=== PATIENT | female | born 1965 | race Caucasian/White ===

== ENCOUNTER 2017-11-07 18:55 | Emergency (ER) | payer OTHER ==
[~2017-11-07] VITALS: Ht 172.7 cm; Wt 63.5 kg
--- OUTSIDE RECORDS SUMMARY | ~2017-11-07 | XMS | Clinical Summary ---
Demographics + + + | Address | [address] | | | [place] [address] | + + + | Home Phone | | + + + | Preferred Language | Unknown | + + + | Marital Status | | + + + | Sabianism Affiliation | 1013 | + + + | Race | Unknown | + + + | Ethnic Group | Unknown | + + + Author + + + | Author | [facility] | | | and [place] | + + + | Organization | [facility] | | | and [place] | + + + | Address | Unknown | + + + | Phone | Unavailable | + + + Support + + + + + | Name | Relationship | Address | Phone | + + + + + | Mis Story | ECON | [address] | | | | | [place], | | | | | [place] [address] | | + + + + + | Panfilo Story | ECON | [address] | | | | | [place], | | | | | [place] [address] | | + + + + + Care Team Providers + +------+ + | Care Inflated Ball Molder Name | Role | Phone | + +------+ + | Elisha Carver MD | PP | | + +------+ + Allergies Not on File Current Medications Not on file Active Problems Not on file Social History + +-------+ +--------+------+ | Tobacco Use | Types | Packs/Day | Years | Date | | | | | Used | | + +-------+ +--------+------+ | Never Assessed | | | | | + +-------+ +--------+------+ + + + | Sex Assigned at | Date Recorded | | | | + + + | Not on file | | + + + Plan of Treatment + + + + + | Health Maintenance | Due Date | Last Done | Comments | + + + + + | Vaccine: | | | | | Dtap/Tdap/Td (1 - | 5 | | | | Tdap) | | | | + + + + + | Cervical Cancer | | | | | Screening (Pap) | 6 | | | + + + + + | Vaccine: Influenza | | | | | (#1) | 8 | | | + + + + + Results Not on filefrom Last 3 Months Insurance +---------+--------+ +------+ + + | Payer | Benefi | Subscriber | Type | Phone | Address | | | t Plan | ID | | | | | | / | | | | | | | Group | | | | | +---------+--------+ +------+ + + | MODA | MODA | [id number] | PPO | [phone] | [address] [address] | | | [place] | | [phone] | [place] [address] | | | [place] | | | | | | | [place] | | | | | +---------+--------+ +------+ + + | [employer] | REGENC | [id number] | PPO | [phone] | | | E [employer]BS | 7 | | 0838 | | | | OUT | | | | | | | OF | | | | | | | [place] | | | | | +---------+--------+ +------+ + + + +--------+ +--------+ + + | Guarantor Name | Accoun | Relation to | Date | Phone | Billing Address | | | t Type | Patient | of | | | | | | | | | | + +--------+ +--------+ + + | BRYNN STORY | Person | Self [birth year] | Work: | [address] | | | denise/Kt | | 1966 | [phone] | [place] [address] | | | [place] | | | [phone]: | | | | | | | | | | | | | | [phone] | | | | | | | [phone] | | + +--------+ +--------+ + +"
--- OUTSIDE RECORDS SUMMARY | ~2017-11-07 | XMS | Clinical Summary ---
Demographics + + + | Address | [address] | | | [place] [address] | + + + | Home Phone | | + + + | Preferred Language | Unknown | + + + | Marital Status | | + + + | Muslim Affiliation | 1013 | + + + | Race | Unknown | + + + | Ethnic Group | Unknown | + + + Author + + + | Author | [facility] | | | and [place] | + + + | Organization | [facility] | | | and [place] | + + + | Address | Unknown | + + + | Phone | Unavailable | + + + Support + + + + + | Name | Relationship | Address | Phone | + + + + + | Mis Story | ECON | [address] | | | | | [place], | | | | | [place] [address] | | + + + + + | Panfilo Story | ECON | [address] | | | | | [place], | | | | | [place] [address] | | + + + + + Care Team Providers + +------+ + | Care Sane Nurse Name | Role | Phone | + [...] + + | MODA | MODA | [id number] | PPO | [phone] [address] [address] | | | [place] | | | [address] | [place] [address] | | | [place] | | | | | | | [place] | | | | | +---------+--------+ +------+ + + | [employer] | REGENC | [id number] | PPO | [phone] | | | | E [employer]BS | [...] | | denise/Kt | | 1966 | [phone] | [place] [address] | | | [place] | | | [phone]: | | | | | | | | | | | | | | [phone] | | | | | | | [address] | | + +--------+ +--------+ + +"
== END 2017-11-07 21:10 | disposition home or self-care (01) ==
LOC: ED 18:55
DX: M79.662 Pain in left lower leg (principal)
CPT/HCPCS: 85379; 93971; 99284

== ENCOUNTER 2022-01-12 13:54 | Emergency (ER) | payer OTHER ==
[~2022-01-12] VITALS: Ht 172.7 cm; Wt 63.5 kg
[2022-01-12] MEDS ORDERED: ELIQUIS5 MG PO ×2 (17:31→17:32)
== END 2022-01-12 17:55 | disposition home or self-care (01) ==
LOC: ED 13:54
DX: I82.412 Acute embolism and thrombosis of left femoral vein (principal); Z88.8 Allergy status to other drugs, medicaments and biological substances
CPT/HCPCS: 93971; 99283-25